=== PATIENT | male | born 2000 | race Caucasian/White ===

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

== ENCOUNTER 2024-01-07 13:53 | Emergency (ER) | payer SELFPAY ==
[~2024-01-07] VITALS: Ht 182.9 cm; Wt 132.1 kg
[~2024-01-07 13:53] MED LIST: HYDROCODON-ACE1 EA10 PO
[2024-01-07] MEDS ORDERED: AMOXICILLIN500 MG PO (16:47)
[2024-01-07 16:52] VITALS: BP 135/78
== END 2024-01-07 16:54 | disposition home or self-care (01) ==
LOC: ED 13:53
DX: K08.409 Partial loss of teeth, unspecified cause, unspecified class (principal)
CPT/HCPCS: 99282